=== PATIENT | male | born 1960 | race Caucasian/White ===

== ENCOUNTER 2024-08-09 14:04 | Emergency (ER) | payer BC, SELFPAY ==
[2024-08-09 14:13] VITALS: BP 181/105
[2024-08-09] MEDS: KEFLEX 500 MG PO (16:33)
[2024-08-09] MEDS: ADACEL 0.5 ML IM (16:34)
[2024-08-09 16:50] VITALS: BP 168/74
--- NOTE | 2024-08-09 18:15 | ED.SKININJ ---
HPI-Injury
General
Chief Complaint: Skin Surface Trauma
Source: patient
Exam Limitations: none
Time Seen by Provider: 08/09/24 15:22
Nursing documentation reviewed up to this point in time: agreed with
History of Present Illness-Injury
Is this injury a work related problem?: Yes
Is pt an associate of [facility]?: No
Initial Injury comments:
Patient to ED for eval of injury to left distal index finger. CUt finger on table saw. 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
Past History
Past History
ED Past Medical History: HTN, Hypercholesterolemia and Other (Kidney stones, diverticulitis)
ED Past Surgical History: Other (Bowel Resection)
Review of Systems
Review of Systems
Allergies reviewed?: Yes
All Other Systems: ROS reviewed and negative except as documented in HPI and ROS
Constitutional: Reports no symptoms
Musculoskeletal: Reports joint pain (Pain to left distal index finger)
Skin: Reports other (Partial amputation of distal left index finger involving nailbed.)
Neurological: Reports no symptoms
Psychiatric: Reports no symptoms
Skin Exam
Laceration
Left Distal Second Finger:
Length in cm: 2
Orientation: stellate
Type of Laceration: complex
Any active bleeding?: no active bleeding
Distal skin color and temperature: normal-warm & good color
Normal distal neurovascular exam: Yes
Range of motion: full
Phy Exam
General Physical Exam
General Presentation: mild distress
General age: appears stated age
General Skin: warm and dry
General Habitus: normal
General Mental: alert
Musculoskeletal Exam
Musculoskeletal Exam: full ROM and neuro vasc intact
Skin Exam
Skin Exam: normal color, warm/dry, no rash and other (Partial amputation involving nailbed of left distal index finger. Bone exposed. Unable to close due to lack of tissue.)
Psychiatric Exam
Psychiatric Exam: normal mood/affect
Course
Orders/Labs/Results
Orders:
Orders
08/09/24 15:39
Finger(s)/Thumb 2 View Lt [CR Finger(s)/thumb Min 2 Vw Lt] Urgent
Comment:
Reason For Exam: trauma
08/09/24 16:23
Cephalexin Monohydrate [Keflex] 500 mg PO NOW STA
Tetanus/Diphth/Acelpertussis [Adacel] 0.5 ml IM .ONCE ONE
Vital Signs
Initial and Last Documented VS:
Initial Vital Signs
Temp Pulse Resp BP Pulse Ox
98.3 F 68 18 181/105 96
08/09/24 14:13 08/09/24 14:13 08/09/24 14:13 08/09/24 14:13 08/09/24 14:13
Last Documented Vital Signs
Temp Pulse Resp BP Pulse Ox
98.3 F 70 16 168/74 98
08/09/24 14:13 08/09/24 16:50 08/09/24 16:50 08/09/24 16:50 08/09/24 16:50
*Radiology
Radiology exam reviewed: radiology read reviewed
*Critical Care Note
Total Time (30-74mins, 75-104mins- exclusive of procedures): Not Applicable
Update Note
Update Note:
Partial amputation of left distal index finger nailbed. Unable to close due to lack of tissue. Distal phalanx fx noted. Digital block with lidocaine 1% and wound care provided. 2 sutures of 5-0 prolene applied to lac extension involving
fingertip. notified of injury and will follow up [facility] patient in the office tomorrw.
ED Attending Note
-
Portions of this chart may have been created with voice recognition software.� Occasional wrong word or��sound alike� substitutions may have occurred due to the inherent limitations of voice recognition software.
Discharge Plan
Departure
Patient Disposition: Home (Routine Discharge)
Date of Disposition: 08/09/24
Time of Disposition: 16:30
Patient with high blood pressure during this ER visit?: No
Condition: Good
Covid-19: Not Applicable
Discharge Problem:
Finger laceration
Instructions: Laceration Repair With Stitches (DC)
Prescriptions:
New
cephalexin 500 mg capsule
500 mg PO BID 7 Days Qty: 14 0RF
No Action
metronidazole 500 MG tablet
500 mg PO TID Qty: 30 0RF
ondansetron [Zofran ODT] 8 MG tablet,disintegrating
8 mg PO TID PRN (Reason: nausea/vomiting) Qty: 20 0RF
levofloxacin 500 MG tablet
500 mg PO DAILY Qty: 10 0RF
oxycodone 5 MG tablet
5 mg PO Q6H PRN (Reason: pain) Qty: 20 0RF
Referrals:
Vanessa Smith MD [Family Provider] -
Ryan Ibrahim MD [Active] - (Call the office in the AM for your appointment time.)
Activity Restrictions/Additional Instructions:
Call the office for [facility] in the AM for your appointment time.
Interventions
Interventions:
*Risk Screen - Suicide Last Done: 08/09/24 14:13
*General Assessment Last Done: 08/09/24 14:13
*ED- Fall Risk Assessment Last Done: 08/09/24 14:34
*ED COVID-19 Vaccine History Last Done: 08/09/24 14:13
*Nursing Disposition Last Done: 08/09/24 16:58
ED-Skin Assessment Last Done: 08/09/24 14:34
Discharge Date and Time
Discharge Date/Time: 08/09/24 16:58
Print Language: GERMAN
== END 2024-08-09 16:58 | disposition home or self-care (01) ==
LOC: EMR 14:04
PROVIDERS: EMERGENCY PHYSICIAN Emergency Medicine; FAMILY PHYSICIAN Family Medicine
DX: S62.631B Displaced fracture of distal phalanx of left index finger, initial encounter for open fracture (principal); W31.2XXA Contact with powered woodworking and forming machines, initial encounter; I10 Essential (primary) hypertension; E78.00 Pure hypercholesterolemia, unspecified; Z23 Encounter for immunization
CPT/HCPCS: 12041; 90471; 99283; 73140; 90715

== ENCOUNTER → 2024-08-10 10:30 | Outpatient (REF) | payer BC, SELFPAY ==
[2024-08-10 11:27] LABS: % Basophils 0.5 % (0-2); % Eosinophils 1.9 % (0-6); % Immature Granulocytes 0.1 % (0-0.5); % Lymphocytes 18.4 % (20.5-51.1); % Monocytes 9.5 % (1.7-9.3); % Neutrophils 69.6 % (42.2-75.2); Absolute Eosinophils 0.1 10^3/uL (0-0.7); Absolute Lymphocytes 1.4 10^3/uL (1.2-3.4); Absolute Monocytes 0.7 10^3/uL (0.1-0.6); Absolute Neutrophils 5.2 10^3/uL (1.4-6.5); Hematocrit 45.2 % (39.0-52.0); Hemoglobin 15.1 g/dL (13.0-18.0); Mean Corp Hgb Conc. 33.4 g/dL (33.0-37.0); Mean Corpuscular Volume 86.8 fL (80.0-94.0); Mean Platelet Volume 10.2 fL (7.4-10.4); Nucleated Red Blood Cells % 0 % (-); Platelet Count 166 10^3/uL (130-400); Red Blood Cell Count 5.21 10^6/uL (4.70-6.10); Red Cell Dist. Width 14.6 % (11.5-14.5); White Blood Cell Count 7.5 10^3/uL (4.8-10.8)
[2024-08-10 12:28] LABS: Blood Urea Nitrogen 29 mg/dl (9-20); Calcium 9.5 mg/dl (8.4-10.2); Carbon Dioxide 25 mmol/L (22-30); Chloride 108 mmol/L (98-107); Glucose 114 mg/dl (70-99); Potassium 4.3 mmol/L (3.5-5.1); Sodium 141 mmol/L (135-145); eGFR > 60.00
== END ==
LOC: RCS 10:30
PROVIDERS: ATTENDING PHYSICIAN Orthopaedic Surgery Hand Surgery; FAMILY PHYSICIAN Family Medicine
DX: Z01.818 Encounter for other preprocedural examination (principal)
CPT/HCPCS: 36415; 80048; 85025; 93005

== ENCOUNTER → 2024-10-11 16:30 | Outpatient (REF) | payer BC, SELFPAY | LOC: RAD 16:30 | PROVIDERS: ATTENDING PHYSICIAN Nurse Practitioner Family; FAMILY PHYSICIAN Family Medicine | DX: M25.571 Pain in right ankle and joints of right foot (principal); M25.471 Effusion, right ankle | CPT/HCPCS: 73610 ==